=== PATIENT | male | born 1950 | race Caucasian/White ===

== ENCOUNTER 2017-04-08 14:57 | Inpatient (IN) | payer MEDICARE, OTHER ==
[~2017-04-08 14:57] MED LIST: ROCURONIUM BROMIDE INJ 50 MG/5 ML VIAL IV ONE; SUCCINYLCHOLINE CHLORIDE INJ 200 MG/10 ML VIAL ONE
--- NOTE | 2017-04-08 15:08 | ER Document Report ---
ED Allergic Reaction - General Mode of Arrival: Medic Information source: Patient, Emergency Med Personnel - HPI Patient complains to provider of: angioedema Associated symptoms: Other - See above <PAMEAL MCMAHON - Last Filed: 04/08/17 19:59> <JUAN CARLOS LANDA - Last Filed: 04/09/17 01:28> - General Chief Complaint: Allergic Reaction Stated Complaint: angioedema Time Seen by Provider: 04/08/17 15:08 Notes: Patient is a 66 year old male, with a past medical history including hypertension, who presents to the emergency department via EMS for angioedema of his tongue after a reaction to Lisinopril. Patient reports he has been taking Lisinopril for "a long time". Patient reports the swelling began around 1000 and that he originally went to [facility] where he received Epinephrine, Solumedrol, and Pepcid. The doctor at that facility reported the tongue started to look better before departure, EMS report no changes in swelling en route. Patient denies difficulty breathing at this time. Patient also complains of a blister on his right index finger. PCP: Dr. Durbin (PAEMLA MCMAHON) - Related Data Allergies/Adverse Reactions: No Known Allergies Allergy (Unverified 04/08/17 18:21) Home Medications: Current Home Medications Atorvastatin Calcium [Lipitor 80 mg Tablet] 80 mg PO DAILY 04/08/17 [History] Fexofenadine HCl [Cathleen] 180 mg PO DAILY 04/08/17 [History] Gabapentin [Neurontin 300 mg Capsule] 300 mg PO Q8 04/08/17 [History] Gemfibrozil [Lopid 600 mg Tablet] 600 mg PO BID 04/08/17 [History] Levothyroxine Sodium [Synthroid] 125 mcg PO DAILY 04/08/17 [History] Lisinopril [Prinivil 40 mg Tablet] 40 mg PO DAILY 04/08/17 [History] Past Medical History - General Information source: Patient - Social History Smoking Status: Never Smoker Frequency of alcohol use: Occasional Drug Abuse: None Family History: Reviewed & Not Pertinent - Past Medical History Cardiac Medical History: Reports: Hx Hypercholesterolemia, Hx Hypertension <PAMELA MCMAHON - Last Filed: 04/08/17 19:59> Review of Systems - Review of Systems Constitutional: No symptoms reported EENT: See HPI, Mouth swelling Cardiovascular: No symptoms reported Respiratory: denies: Other - Difficulty breathing Gastrointestinal: No symptoms reported Genitourinary: No symptoms reported Male Genitourinary: No symptoms reported Musculoskeletal: No symptoms reported Skin: See HPI, Other - blister Hematologic/Lymphatic: No symptoms reported Neurological/Psychological: No symptoms reported -: Yes All other systems reviewed and negative <PAMELA MCMAHON - Last Filed: 04/08/17 19:59> Physical Exam <PAMELA MCMAHON - Last Filed: 04/08/17 19:59> <JUAN CARLOS LANDA - Last Filed: 04/09/17 01:28> - Vital signs Vitals: Resp Pulse Ox 17 96 04/08/17 15:03 04/08/17 15:03 - Notes Notes: GENERAL: Alert, interacts well. No acute distress. HEAD: Normocephalic, atraumatic. EYES: Pupils equal, round, and reactive to light. Extraocular movements intact. ENT: Oral mucosa moist, able to hold secretions. Unliateral swelling of left side of tongue. Able to visualize part of uvula. Voice is muffled. No soft pallet swelling. NECK: Full range of motion. Supple. Trachea midline. LUNGS: Clear to auscultation bilaterally, no wheezes, rales, or rhonchi. No respiratory distress. HEART: Regular rate and rhythm. No murmurs, gallops, or rubs. ABDOMEN: Soft, non-tender. Non-distended. Bowel sounds present in all 4 quadrants. EXTREMITIES: Moves all 4 extremities spontaneously. No edema, radial and dorsalis pedis pulses 2/4 bilaterally. No cyanosis. NEUROLOGICAL: Alert and oriented x3. Normal speech. PSYCH: Normal affect, normal mood. SKIN: 2mm area of pus on dorsal aspect of 1st phalanx on right hand with surrounding 1.5cm area of erythema that is firm and warm, no extensor tendonitis. (PAMELA MCMAHON) Course - Laboratory Result Diagrams: 04/08/17 15:02 04/08/17 15:02 - Consults anaesthesia Time consulted: 15:29 - Discussed patient's condition, requested anaesthesia to come exam patient Dr. Gonzales Time consulted: 17:00 - Will admit to ICU Consulted provider: will see as inpatient <PAMELA MCMAHON - Last Filed: 04/08/17 19:59> - Laboratory Result Diagrams: 04/08/17 15:02 04/08/17 15:02 <JUAN CARLOS LANDA - Last Filed: 04/09/17 01:28> - Re-evaluation Re-evalutation: 04/09/17 00:59 On arrival patient was protecting his airway well, had unilateral left-sided swelling of the tongue and his voice is somewhat muffled, patient had already received Pepcid, Benadryl, Solu-Medrol and epinephrine and stated that he is starting to feel better. Patient was closely monitored, after approximately 30 minutes patient started to feel like he was may be having some difficulty swallowing though he states his tongue did not feeling more swollen. When I rechecked in the left side of his tongue was more swollen than previously and the right side of his tongue was beginning to swell. At this point I did call anesthesia and let them know that I wanted them to come to the emergency department to evaluate this patient for potential emergent intubation. They did contact the surgeon Dr. Mtz who also came to the emergency department. During this time the patient's swelling progressed further. FFP and TXA were ordered as well as another dose of epinephrine. Dr. Dk Beavers from anesthesiology came along with his BOX FABRICATOR, they initially attempted to intubate the patient using a glide scope as well as propofol and succinylcholine and an 8 -0 ET tube, the were both unable to visualize the cords and were unable to pass the tube. I then attempted using a different glidescope bleed and was unable to pass the tube after visualizing the cords as the tube was too large, I then attempted to pass a bougie through the cords so we could load the tube over it, I was unable to pass the bougie through the cords however than the BOX FABRICATOR used a nasal approach and passed the bougie through the cords. He was concerned by the amount of edema that he was Encountering past the cords so before I could load a 7-0 ET tube onto the bougie he removed the bougie from the cords. At this point the anesthesiologist called for a halt to all attempts to intubate this patient. Dr. Mtz was at the bedside and decision was made to proceed with emergent cricothyroidotomy. During my attempted intubation and for the cricothyrotomy patient was given more ketamine for sedation as well as additional propofol. Dr. Mtz successfully performed a cricothyrotomy and placed a 6.5 Shiley. Please see his note for further details. Patient did have some hypoxia after the procedure, he had some wheezing, patient was given an albuterol breathing treatment and ventilator settings were adjusted and the hypoxia resolved. Patient was then discussed with Dr. Méndez who agreed to admit the patient to his service in the intensive care unit. (JUAN CARLOS LANDA) - Vital Signs Vital signs: Temp Pulse Resp BP Pulse Ox 97.5 F 68 18 110/53 L 100 04/09/17 00:05 04/09/17 00:04 04/09/17 00:05 04/09/17 00:05 04/09/17 00:05 - Laboratory Laboratory results interpreted by me: 04/08/17 04/08/17 15:02 15:02 WBC 11.0 H Hgb 13.0 L Monocytes % 15.2 H Eosinophils % 7.2 H Absolute Monocytes 1.7 H Absolute Eosinophils 0.8 H Sodium 136.6 L BUN 21 H Creatinine 1.45 H Est GFR ( Amer) 59 L Est GFR (Non-Af Amer) 49 L Glucose 143 H Procedures - Intubation Orotracheal Airway evaluation: Large tongue, Poss. upper airway obst. Mallampati Classification: Class 4 Medications: Succinylcholine, Ketamine, Diprivan Intubation method: Orotracheal Blade type: Graciela Blade size: 4 Equipment used: Glidescope, Bougie, Other - Airway eventually secured through cricothyrotomy Dr. Mtz. Sutured in place. Chest x-ray confirms good position. Breath Sounds after Intubation: Equal End tidal CO2 confirmed: Yes Ventilator settings: SIMV Tidal volume: 450 FiO2: 30 Respirations: 16 Pressure support: 10 PEEP: 5 Post Intubation Xray: Yes Intubation Complications: Oral-unsuccessful attempt, O2 saturation decreased <JUAN CARLOS LANDA - Last Filed: 04/09/17 01:28> Critical Care Note - Critical Care Note Total time excluding time spent on procedures (mins): 35 <JUAN CARLOS LANDA - Last Filed: 04/09/17 01:28> Discharge <PAMELA MCMAHON - Last Filed: 04/08/17 19:59> - Discharge Admitting Provider: Hospitalist - busteed Unit Admitted: ICU <JUAN CARLOS LANDA - Last Filed: 04/09/17 01:28> - Discharge Clinical Impression: Angio-edema Qualifiers: Encounter type: initial encounter Qualified Code(s): T78.3XXA - Angioneurotic edema, initial encounter Condition: Critical Disposition: ADMITTED INPATIENT Scribe Attestation: 04/09/17 01:19 I personally performed the services described in the documentation, reviewed and edited the documentation which was dictated to the scribe in my presence, and it accurately records my words and actions. (JUAN CARLOS LANDA) Scribe Documentation - Scribe Written by Sidra:: sidra Gauthier, 04/08/17, 1538 acting as scribe for :: Esteban <PAMELA MCMAHON - Last Filed: 04/08/17 19:59>
[2017-04-08] MEDS ORDERED: NORMAL SALINE 250 ML IV PRN (15:30)
[2017-04-08] MEDS ORDERED: TRANEXAMIC ACID INJ/PF 1,000 MG/10 ML SDV IV ONE (15:31)
[2017-04-08] MEDS ORDERED: EPINEPHRINE INJ/PF 1 MG/1 ML AMPULE ONE (15:42)
[2017-04-08] MEDS ORDERED: PROPOFOL INJ 200 MG/20 ML VIAL IV ONE (15:59)
[2017-04-08] MEDS ORDERED: EPTIFIBATIDE 0 MG/0 ML INFUS..BTL IV ONE (16:04)
[2017-04-08] MEDS ORDERED: KETAMINE HCL INJ 500 MG/10 ML VIAL ONE (16:08)
[2017-04-08] MEDS ORDERED: LIDOCAINE 0.5% INJ-PF (5 MG/ML) 50 ML SDV ONE (16:12)
[2017-04-08] MEDS ORDERED: MIDAZOLAM HCL 100 ML IV ONE (16:26)
[2017-04-08] MEDS ORDERED: ALBUTEROL SULFATE 0.083% NEB 2.5 MG/3 ML AMPUL NEB ONE ×2 (16:30→17:03)
[2017-04-08] MEDS ORDERED: MIDAZOLAM 2 MG/2 ML INJ ONE (17:00)
[2017-04-08] MEDS ORDERED: MIDAZOLAM 2 MG/2 ML INJ IV ONE (17:01)
[2017-04-08] MEDS ORDERED: PROPOFOL 100 ML IV PRN ×2 (17:07→18:04)
[2017-04-08] MEDS ORDERED: PROPOFOL 100 ML IV ONE (17:09)
[2017-04-08 17:12] LABS: ABSOLUTE BASOPHILS # (AUTO) 0.1 10^3/uL (0.0-0.2); ABSOLUTE EOSINOPHILS # (AUTO) 0.8 10^3/uL (0.0-0.6); ABSOLUTE LYMPHOCYTES (AUTO) 2.5 10^3/uL (0.5-4.7); ABSOLUTE MONOCYTES (AUTO) 1.7 10^3/uL (0.1-1.4); ABSOLUTE NEUT (AUTO) 5.9 10^3/uL (1.7-8.2); BASOPHILS % (AUTO) 1.1 % (0-2); EOSINOPHILS % (AUTO) 7.2 % (0-6); HEMATOCRIT 38.9 % (37.9-51.0); HGB HCT DIFFERENCE 0.1; LYMPHOCYTES % (AUTO) 23.1 % (13-45); MEAN CORPUSCULAR HEMOGLOBIN 28.8 pg (27.0-33.4); MEAN CORPUSCULAR HGB CONC 33.4 g/dL (32.0-36.0); MEAN CORPUSCULAR VOLUME 86 fl (80-97); MONOCYTES % (AUTO) 15.2 % (3-13); RED BLOOD COUNT 4.51 10^6/uL (4.35-5.55); RED CELL DISTRIBUTION WIDTH 13.7 % (11.5-14.0); SEGMENTED NEUTROPHILS % (AUTO) 53.4 % (42-78)
--- NOTE | 2017-04-08 17:28 | RADIOLOGY REPORT (SQ) ---
EXAM DESCRIPTION: CHEST SINGLE VIEW COMPLETED DATE/TIME: 04/08/2017 5:11 pm REASON FOR STUDY: post-intubation/OG PLACEMENT COMPARISON: None. EXAM PARAMETERS: NUMBER OF VIEWS: One view. TECHNIQUE: Single frontal radiographic view of the chest acquired. RADIATION DOSE: NA LIMITATIONS: None. FINDINGS: LUNGS AND PLEURA: No opacities, masses or pneumothorax. No pleural effusion. MEDIASTINUM AND HILAR STRUCTURES: No masses. Contour normal. HEART AND VASCULAR STRUCTURES: Heart normal in size. Normal vasculature. BONES: No acute findings. HARDWARE: A tracheostomy tube is present. There appears to be an NG tube or OG tube extending just i nside the stomach. OTHER: No other significant finding. IMPRESSION: Tube placement as described. TECHNICAL DOCUMENTATION: JOB ID: [id number]
[2017-04-08 17:29] LABS: ALANINE AMINOTRANSFERASE 36 U/L (21-72); ALBUMIN 4.2 g/dL (3.5-5.0); ALKALINE PHOSPHATASE 90 U/L (38-126); ANION GAP 12 (5-19); ASPARTATE AMINO TRANSFERASE 29 U/L (17-59); BILIRUBIN,DIRECT 0.4 mg/dL (0.0-0.4); BILIRUBIN,TOTAL 0.6 mg/dL (0.2-1.3); BLOOD UREA NITROGEN 21 mg/dL (7-20); CALCIUM 9.2 mg/dL (8.4-10.2); CARBON DIOXIDE 23 mmol/L (22-30); CHLORIDE 102 mmol/L (98-107); CREATININE RESULT 1.45 mg/dL (0.52-1.25); GLUCOSE 143 mg/dL (75-110); POTASSIUM 4.5 mmol/L (3.6-5.0); SODIUM 136.6 mmol/L (137-145); TOTAL PROTEIN 7.6 g/dL (6.3-8.2)
[2017-04-08] MEDS ORDERED: ONDANSETRON 4 MG TAB.RAPDIS PO PRN (17:47)
[2017-04-08] MEDS ORDERED: LEVALBUTEROL HCL NEB 0.63 MG/3 ML AMPUL NEB PRN (17:47)
[2017-04-08] MEDS ORDERED: DEXTROSE 50%-WATER 25 GM/50 ML DISP.SYRIN IV PRN ×2 (17:47)
[2017-04-08] MEDS ORDERED: ACETAMINOPHEN 650 MG SUPP.RECT PR PRN (17:47)
[2017-04-08] MEDS ORDERED: GLUCAGON,HUMAN RECOMB 1 MG INJ SUBCUT PRN (17:47)
[2017-04-08] MEDS ORDERED: ONDANSETRON HCL INJ/PF 4 MG/2 ML SDV IV PRN (17:47)
[2017-04-08] MEDS ORDERED: DEXTROSE 40% GEL 15 GM TUBE PO PRN ×2 (17:47)
--- NOTE | 2017-04-08 18:04 | RADIOLOGY REPORT (SQ) ---
EXAM DESCRIPTION: CHEST SINGLE VIEW COMPLETED DATE/TIME: 04/08/2017 5:52 pm REASON FOR STUDY: INTUBATION COMPARISON: None. EXAM PARAMETERS: NUMBER OF VIEWS: One view. TECHNIQUE: Single frontal radiographic view of the chest acquired. RADIATION DOSE: NA LIMITATIONS: None. FINDINGS: LUNGS AND PLEURA: No opacities, masses or pneumothorax. No pleural effusion. MEDIASTINUM AND HILAR STRUCTURES: No masses. Contour normal. HEART AND VASCULAR STRUCTURES: Heart normal in size. Normal vasculature. BONES: No acute findings. HARDWARE: The tracheostomy tube is present. And NG tube extends just inside the stomach. OTHER: No other significant finding. IMPRESSION: Tube placement as described. TECHNICAL DOCUMENTATION: JOB ID: [id number]
--- NOTE | 2017-04-08 18:13 | PDOC H&P ---
History of Present Illness Admission Date/PCP: 04/08/17 17:43 ALLYSON LOVE MD Patient complains of: Angioedema History of Present Illness: ADAL CHOI is a 66 year old male with a history of hypertension for which she has been taking lisinopril 40 mg daily presented to the emergency room with angioedema. The patient approximately 1:00 this afternoon presented to his boss at work and said he needs to go to see the doctor. At that time his boss noted that he was having slurred speech and a swollen face is worse on the right. He then went to his primary care at [facility] and was given IV steroids, IV Benadryl, IV H2 abeba and the ambulance was called. Patient was transferred to the emergency room here at [facility] and he continued to have worsening swelling. Anesthesia was called for intubation and they were unable to intubate the patient. The patient then underwent emergent tracheostomy. Since that time the patient has been ventilating comfortably and has received continued steroids and antihistamines. Past Medical History Cardiac Medical History: Reports: Hyperlipidema, Hypertension Pulmonary Medical History: Reports: None EENT Medical History: Reports: None Neurological Medical History: Reports: None Endocrine Medical History: Reports: Hypothyroidism Malignancy Medical History: Reports: None GI Medical History: Reports: None Psychiatric Medical History: Reports: None Traumatic Medical History: Reports: None Hematology: Reports: None Infectious Medical History: Reports: None Past Surgical History Past Surgical History: Reports: None Social History Information Source: Relative Lives with: Spouse/Significant other Smoking Status: Never Smoker Frequency of Alcohol Use: None Hx Recreational Drug Use: No Drugs: None - Advance Directive Resuscitation Status: Full Code Family History Family History: Father at age 49 from a CVA. Mother in her 60s from chronic renal failure Parental Family History Reviewed: Yes Children Family History Reviewed: No Sibling(s) Family History Reviewed.: No Review of Systems ROS unobtainable: Due to endotracheal tube Physical Exam Vital Signs: Temp Pulse Resp BP Pulse Ox 18 147/80 H 97 04/08/17 15:26 04/08/17 15:26 04/08/17 15:26 General appearance: PRESENT: obese Head exam: PRESENT: atraumatic, normocephalic Eye exam: PRESENT: conjunctiva pink, PERRLA. ABSENT: scleral icterus Ear exam: PRESENT: normal external ear exam Mouth exam: PRESENT: moist, tongue midline Neck exam: PRESENT: tracheostomy - Fresh tracheostomy in place. ABSENT: carotid bruit, JVD, lymphadenopathy, thyromegaly Respiratory exam: PRESENT: clear to auscultation katelyn. ABSENT: rales, rhonchi, wheezes Cardiovascular exam: PRESENT: RRR. ABSENT: diastolic murmur, rubs, systolic murmur GI/Abdominal exam: PRESENT: normal bowel sounds, soft. ABSENT: distended, guarding, mass, organolmegaly, rebound, tenderness Extremities exam: ABSENT: calf tenderness, clubbing, pedal edema Neurological exam: PRESENT: other - Unable to assess as the patient is sedated Psychiatric exam: PRESENT: other - Unable to assess Skin exam: PRESENT: dry, intact, warm. ABSENT: cyanosis, rash Results Impressions: Chest X-Ray 04/08/17 17:01 IMPRESSION: Tube placement as described. Assessment & Plan - Diagnosis (1) Angio-edema Is this a current diagnosis for this admission?: YesPlan: The patient has angioedema most likely from the lisinopril he normally takes as an outpatient. He has been on this for years. Will give the Solu-Medrol, Benadryl, Pepcid. Patient will be monitored in the intensive care unit. Will consult general surgery to help manage the tracheostomy site. (2) Hypertension Is this a current diagnosis for this admission?: YesPlan: Will stop the lisinopril. (3) Hypothyroidism Is this a current diagnosis for this admission?: YesPlan: Patient normally is on Synthroid. (4) Hyperlipidemia Is this a current diagnosis for this admission?: YesPlan: Patient takes 2 different cholesterol medications however the is unable to remember the names at this time - Time Time Spent: 50 to 70 Minutes - Inpatient Certification Medical Necessity: Need Close Monitoring Due to Risk of Patient Decompensation - Plan Summary Plan Summary: Admitted to the intensive care unit for close monitoring.
[2017-04-08] MEDS: METHYLPREDNISOLONE INJ 40 MG/1 ML SDV IV SCH (21:22)
[2017-04-08] MEDS: DIPHENHYDRAMINE HCL 50 MG/ML VIAL IV SCH (21:22)
[2017-04-08] MEDS: FAMOTIDINE INJ/PF 20 MG/2 ML SDV IV SCH (21:23)
[2017-04-08] MEDS: NORMAL SALINE 1000 ML 1,000 ML IV PRN (22:31)
[2017-04-08] MEDS: PROPOFOL 100 ML IV PRN (23:56)
[2017-04-08] MEDS: MIDAZOLAM HCL 100 ML IV PRN (23:56)
[2017-04-09] MEDS: DIPHENHYDRAMINE HCL 50 MG/ML VIAL IV SCH ×2 (03:24→09:48)
[2017-04-09] MEDS: PROPOFOL 100 ML IV PRN ×4 (03:34→09:49)
[2017-04-09 04:42] LABS: ABSOLUTE LYMPHOCYTES (AUTO) 0.9 10^3/uL (0.5-4.7); ABSOLUTE MONOCYTES (AUTO) 0.9 10^3/uL (0.1-1.4); ABSOLUTE NEUT (AUTO) 12.3 10^3/uL (1.7-8.2); BASOPHILS % (AUTO) 0.3 % (0-2); EOSINOPHILS % (AUTO) 0.1 % (0-6); HEMATOCRIT 33.9 % (37.9-51.0); HGB HCT DIFFERENCE -0.9; LYMPHOCYTES % (AUTO) 6.5 % (13-45); MEAN CORPUSCULAR HEMOGLOBIN 27.9 pg (27.0-33.4); MEAN CORPUSCULAR HGB CONC 32.4 g/dL (32.0-36.0); MEAN CORPUSCULAR VOLUME 86 fl (80-97); MONOCYTES % (AUTO) 6.4 % (3-13); RED BLOOD COUNT 3.92 10^6/uL (4.35-5.55); RED CELL DISTRIBUTION WIDTH 13.6 % (11.5-14.0); SEGMENTED NEUTROPHILS % (AUTO) 86.7 % (42-78); WHITE BLOOD COUNT 14.2 10^3/uL (4.0-10.5)
[2017-04-09 04:55] LABS: ANION GAP 10 (5-19); BLOOD UREA NITROGEN 18 mg/dL (7-20); CALCIUM 8.3 mg/dL (8.4-10.2); CARBON DIOXIDE 22 mmol/L (22-30); CHLORIDE 106 mmol/L (98-107); CREATININE RESULT 0.98 mg/dL (0.52-1.25); GLUCOSE 153 mg/dL (75-110); POTASSIUM 4.6 mmol/L (3.6-5.0); TRIGLYCERIDES 135 mg/dL (<150)
[2017-04-09] MEDS: NORMAL SALINE 1000 ML 1,000 ML IV PRN (05:01)
[2017-04-09] MEDS: METHYLPREDNISOLONE INJ 40 MG/1 ML SDV IV SCH (05:01)
[2017-04-09 05:10] LABS: ARTERIAL BLOOD BASE EXCESS 0.5 mmol/L; ARTERIAL BLOOD O2 SATURATION 97.8 % (94-98)
[2017-04-09] MEDS: MIDAZOLAM HCL 100 ML IV PRN (06:56)
--- NOTE | 2017-04-09 07:14 | RADIOLOGY REPORT (SQ) ---
EXAM DESCRIPTION: CHEST SINGLE VIEW COMPLETED DATE/TIME: 04/09/2017 6:30 am REASON FOR STUDY: intubation COMPARISON: 04/08/2017. EXAM PARAMETERS: NUMBER OF VIEWS: One view. TECHNIQUE: Single frontal radiographic view of the chest acquired. RADIATION DOSE: NA LIMITATIONS: None. FINDINGS: LUNGS AND PLEURA: Moderate lung volumes. Mild interstitial markings of the lower lobes. MEDIASTINUM AND HILAR STRUCTURES: No masses. Contour normal. HEART AND VASCULAR STRUCTURES: Heart normal in size. Normal vasculature. BONES: No acute findings. HARDWARE: Adequate appearing NG tube. OTHER: No other significant finding. IMPRESSION: No significant interval change. NG tube. TECHNICAL DOCUMENTATION: JOB ID: [id number]
[2017-04-09] MEDS ORDERED: NORMAL SALINE 250 ML IV PRN ×2 (07:59)
--- NOTE | 2017-04-09 09:31 | PDOC TRANSFER SUMMARY ---
General Admission Date/PCP: 04/08/17 17:47 ALLYSON LOVE MD Transfer Date: 04/09/17 Accepting Facility: [facility] Accepting Physician: Dr. Arnaldo Powell Resuscitation Status: Full Code - Transfer Diagnosis (1) Angio-edema Is this a current diagnosis for this admission?: YesDiagnosis Summary: [place] to most likely be secondary to lisinopril (2) Hypertension Is this a current diagnosis for this admission?: Yes (3) Hypothyroidism Is this a current diagnosis for this admission?: Yes (4) Hyperlipidemia Is this a current diagnosis for this admission?: Yes - Transfer Medications Home Medications: Atorvastatin Calcium [Lipitor 80 mg Tablet] 80 mg PO DAILY 04/08/17 Fexofenadine HCl [Cathleen] 180 mg PO DAILY 04/08/17 Gabapentin [Neurontin 300 mg Capsule] 300 mg PO Q8 04/08/17 Gemfibrozil [Lopid 600 mg Tablet] 600 mg PO BID 04/08/17 Levothyroxine Sodium [Synthroid] 125 mcg PO DAILY 04/08/17 Lisinopril [Prinivil 40 mg Tablet] 40 mg PO DAILY 04/08/17 Transfer Medications: Current Medications Acetaminophen (Tylenol 650 Mg Supp) [address] Q4HP PRN PRN Reason: FOR PAIN OR TEMP Stop: 05/08/17 17:46 Dextrose (Dextrose Inj 50% Syringe (25 Gm/50 Ml)) 12.5 gm IV PRN PRN; Protocol PRN Reason: FOR BG 50-69 IN ALERT PATIENT Stop: 05/08/17 17:46 Dextrose (Dextrose Inj 50% Syringe (25 Gm/50 Ml)) 25 gm IV PRN PRN; Protocol PRN Reason: See Label Comments Stop: 05/08/17 17:46 Diphenhydramine HCl (Benadryl Inj 50 Mg/1 Ml Vial) 50 mg IV Q6A KLAUS Stop: 05/08/17 20:59 Last Admin: 04/09/17 03:24 Dose: 50 mg Famotidine (Pepcid Inj/Pf 20 Mg/2 Ml Sdv) 20 mg IV Q12 KLAUS Stop: 05/08/17 21:59 Last Admin: 04/08/17 21:23 Dose: 20 mg Glucagon (Glucagen Inj 1 Mg Vial) 1 mg SUBCUT PRN PRN; Protocol PRN Reason: Evaluate for BG < 70 Stop: 05/08/17 17:46 Glucose (Glutose 40% Gel 15 Gm Tube) 15 gm PO PRN PRN; Protocol PRN Reason: For BG 50-69 in Alert Patient Stop: 05/08/17 17:46 Glucose (Glutose 40% Gel 15 Gm Tube) 30 gm PO PRN PRN; Protocol PRN Reason: FOR BG < 50 IN ALERT PATIENT Stop: 05/08/17 17:46 Sodium Chloride (Nacl 0.9% 250 Ml Iv Soln) 250 mls @ 0 mls/hr IV CONTINUOUS PRN ; As Directed PRN Reason: AFTER EACH UNIT Stop: 04/09/17 15:29 Sodium Chloride (Nacl 0.9% 1000 Ml Iv Soln) 1,000 mls @ 125 mls/hr IV CONTINUOUS PRN PRN Reason: THIS MED IS NOT "PRN" Stop: 05/08/17 17:46 Last Admin: 04/09/17 05:01 Dose: 1,000 ml Propofol (Diprivan Rtu 1000 Mg/100 Ml Inf.Bottle) 100 mls @ 0 mls/hr IV CONTINUOUS PRN; Protocol; Titrate PRN Reason: THIS MED IS NOT "PRN" Stop: 05/08/17 23:10 Last Admin: 04/09/17 06:55 Dose: 100 ml Sodium Chloride (Nacl 0.9% 250 Ml Iv Soln) 250 mls @ 30 mls/hr IV .DURING TRANSFUSION PRN PRN Reason: THIS MED IS NOT "PRN" Stop: 04/10/17 07:58 Sodium Chloride (Nacl 0.9% 250 Ml Iv Soln) 250 mls @ 0 mls/hr IV CONTINUOUS PRN ; As Directed PRN Reason: AFTER EACH UNIT Stop: 04/10/17 07:58 Levalbuterol HCl (Xopenex Neb 0.63 Mg/3 Ml Ampul) 0.63 mg NEB RTQ4HP PRN PRN Reason: SHORTNESS OF BREATH Stop: 05/08/17 17:46 Methylprednisolone Sodium Succinate (Solu-Medrol Inj/Pf 40 Mg/1 Ml Sdv) 40 mg IV Q8 KLAUS Stop: 05/08/17 21:59 Last Admin: 04/09/17 05:01 Dose: 40 mg Ondansetron HCl (Zofran Inj/Pf 4 Mg/2 Ml Sdv) 4 mg IV Q4HP PRN PRN Reason: FOR NAUSEA/VOMITING Stop: 05/08/17 17:46 Ondansetron HCl (Zofran Odt 4 Mg Tablet) 4 mg PO Q4HP PRN PRN Reason: FOR NAUSEA/VOMITING Stop: 05/08/17 17:46 Sodium Chloride (Saline Flush 2.5 Ml Monoject Prefil Syrin) 2.5 ml IV Q8 KLAUS Stop: 05/08/17 21:59 Last Admin: 04/09/17 05:01 Dose: Not Given - Allergies Allergies/Adverse Reactions: No Known Allergies Allergy (Unverified 04/08/17 18:21) - Diet/Activity Discharge Diet: Other (Comments) - N.p.o. Discharge Activity: Bedrest Hospital Course Hospital Course: 66-year-old gentleman who has been on lisinopril for many years who was in good health until yesterday afternoon. He went to his boss to complain that he was having some problems with facial swelling and he was noted to have some slurred speech. He went to his primary care doctor which was at [facility]. He was given steroids, Benadryl and the EMS was called. Patient was found to have upper airway swelling secondary to angioedema. He was transferred to [facility] emergency room. At that time he continued to have worsening of his airway obstruction. He had already been given steroids, Benadryl. Anesthesia was called and they attempted to do intubation. They were unable to intubate his airway and Dr. Mtz of general surgery performed an emergency tracheostomy. The patient received fresh frozen plasma in the emergency room. The patient was admitted and was continued on IV steroids, Benadryl, Pepcid. Overnight the patient continues to have significant amount of soft tissue swelling. His tongue is protruding from his mouth. He is being given 2 additional units of FFP. ENT consultation is not available at our facility at this time. Because of this I discussed the case with Dr. Arnaldo Powell at [facility] intensive care unit who graciously agrees to accept the patient in transfer. The patient did not have any hypotension or hypoxia during his emergency room stay. According to anesthesia there was concern that there may have been a mass in the hypopharynx area however given the angioedema is unclear whether it was just related angioedema or there is some other process going on. In the electronic medical records it is documented that the patient received Integrilin. This is incorrect and the patient did not receive Integrilin. Physical Exam Vital Signs: Temp Pulse Resp BP Pulse Ox 96.6 F L 65 18 111/63 99 04/09/17 06:06 04/09/17 07:33 04/09/17 06:06 04/09/17 06:06 04/09/17 06:06 Intake & Output 04/08/17 04/09/17 04/10/17 06:59 06:59 06:59 Intake Total 1479 Output Total 1950 60 Balance -471 -60 Weight 98.8 kg General appearance: PRESENT: no acute distress Head exam: PRESENT: atraumatic, normocephalic Eye exam: PRESENT: conjunctiva pink, EOMI, PERRLA. ABSENT: scleral icterus Ear exam: PRESENT: normal external ear exam Mouth exam: PRESENT: other - Has soft tissue swelling with his tongue protruding from his mouth. Neck exam: PRESENT: tracheostomy. ABSENT: JVD, tracheal deviation Respiratory exam: PRESENT: clear to auscultation katelyn. ABSENT: rales, rhonchi, wheezes Cardiovascular exam: PRESENT: RRR. ABSENT: diastolic murmur, rubs, systolic murmur GI/Abdominal exam: PRESENT: normal bowel sounds, soft. ABSENT: distended, guarding, mass, organolmegaly, rebound, tenderness Extremities exam: ABSENT: calf tenderness, clubbing, pedal edema Neurological exam: PRESENT: other - Sedated Psychiatric exam: PRESENT: other - Unable to assess Skin exam: PRESENT: dry, intact, warm. ABSENT: cyanosis, rash Results Laboratory Results: 04/09/17 04:29 04/09/17 04:29 04/09/17 04/09/17 04/09/17 04:29 04:29 04:50 WBC 14.2 H RBC 3.92 L Hgb 11.0 L Hct 33.9 L MCV 86 MCH 27.9 MCHC 32.4 RDW 13.6 Plt Count 288 Seg Neutrophils % 86.7 H Lymphocytes % 6.5 L Monocytes % 6.4 Eosinophils % 0.1 Basophils % 0.3 Absolute Neutrophils 12.3 H Absolute Lymphocytes 0.9 Absolute Monocytes 0.9 Absolute Eosinophils 0.0 Absolute Basophils 0.0 Carbonic Acid 1.28 HCO3/H2CO3 Ratio 19:1 ABG pH 7.40 ABG pCO2 42.6 ABG pO2 106.5 H ABG HCO3 25.5 ABG O2 Saturation 97.8 ABG Base Excess 0.5 FiO2 40% Sodium 138.0 Potassium 4.6 Chloride 106 Carbon Dioxide 22 Anion Gap 10 BUN 18 Creatinine 0.98 Est GFR ( Amer) > 60 Est GFR (Non-Af Amer) > 60 Glucose 153 H Calcium 8.3 L Triglycerides 135 Impressions: Chest X-Ray 04/09/17 06:00 IMPRESSION: No significant interval change. NG tube. Plan Discharge Plan: Patient is to be transferred to [facility]. Dr. Arnaldo Powell is the accepting physician. He is being transferred for further ENT evaluation which is not available at our facility at this time. Time Spent: Greater than 30 Minutes
[2017-04-09] MEDS: FAMOTIDINE INJ/PF 20 MG/2 ML SDV IV SCH (09:48)
[2017-04-09 10:10] VITALS: BP 113/61
== END 2017-04-09 10:05 | disposition short-term general hospital (02) | DRG 4 ==
LOC: ER 14:57 → UNDOADMIN 17:43 → EH 17:43 → ICU 20:04
PROVIDERS: ADMIT Family Medicine; ATTEND Family Medicine
PROC: 0B110F4 Bypass Trachea to Cutaneous with Tracheostomy Device, Open Approach (ICD-10-PCS; principal; 2017-04-08)
PROC: 5A1935Z Respiratory Ventilation, Less than 24 Consecutive Hours (ICD-10-PCS; 2017-04-08)
PROC: 30233K1 Transfusion of Nonautologous Frozen Plasma into Peripheral Vein, Percutaneous Approach (ICD-10-PCS; 2017-04-08)
PROC: 0H9FXZZ Drainage of Right Hand Skin, External Approach (ICD-10-PCS; 2017-04-08)
DX: T78.3XXA Angioneurotic edema, initial encounter (principal); S60.420A Blister (nonthermal) of right index finger, initial encounter; I10 Essential (primary) hypertension; E78.5 Hyperlipidemia, unspecified; E03.9 Hypothyroidism, unspecified; Z79.899 Other long term (current) drug therapy
CPT/HCPCS: 36415; 36430; 51702; 71010; 80048; 80053; 82803; 84478; 85025; 86900; 86901; 87070; 87075; 87077; 87186; 87205; 94003; 94640; 99291; J0330; J1200; J2250; J2704; J2920; J3490; J7030; P9017; S0028

== ENCOUNTER 2018-07-11 13:25 | Emergency (ER) | payer MEDICARE, OTHER ==
[2018-07-11] MEDS ORDERED: FAMOTIDINE INJ/PF 20 MG/2 ML SDV IV ONE (14:20)
[2018-07-11] MEDS ORDERED: METHYLPREDNISOLONE INJ 125 MG/2 ML SDV IV ONE (14:20)
--- NOTE | 2018-07-11 14:22 | ER Document Report ---
ED Medical Screen (RME) - General Chief Complaint: Allergic Reaction Stated Complaint: FACIAL SWELLING Time Seen by Provider: 07/11/18 14:17 Mode of Arrival: Ambulatory Information source: Patient Notes: Patient is a 67-year-old male who presents with chief complaint of facial swelling. Patient reports no new medications foods or anything else ingested. Patient reports that this morning he started having a feeling that his face was swelling as well as throat swelling. Patient denies any difficulty breathing. Patient does report that he has an allergy to lisinopril, he apparently required an emergent tracheotomy 1 year ago in relation to his lisinopril allergy. Patient has not taken that medication since then. Exam: Face flushed with mild swelling. No airway swelling noted on visual exam. Patient able to swallow without difficulty. Lung sounds are clear to auscultation bilaterally. I have greeted and performed a rapid initial assessment of this patient. A comprehensive ED assessment and evaluation of the patient, analysis of test results and completion of the medical decision making process will be conducted by additional ED providers. Dictation of this chart was performed using voice recognition software; therefore, there may be some unintended grammatical errors. TRAVEL OUTSIDE OF THE [place] IN LAST 30 DAYS: No - Related Data Allergies/Adverse Reactions: lisinopril Allergy (Verified 07/11/18 13:28) Past Medical History - Social History Chew tobacco use (# tins/day): No Frequency of alcohol use: Social Drug Abuse: None - Past Medical History Cardiac Medical History: Reports: Hx Hypercholesterolemia, Hx Hypertension Endocrine Medical History: Reports: Hx Hypothyroidism Renal/ Medical History: Denies: Hx Peritoneal Dialysis Past Surgical History: Reports: Hx Orthopedic Surgery, Hx Tonsillectomy Physical Exam - Vital signs Vitals: Temp Pulse Resp BP Pulse Ox 98.1 F 73 16 146/76 H 97 07/11/18 13:40 07/11/18 13:40 07/11/18 13:40 07/11/18 13:40 07/11/18 13:40 Course - Vital Signs Vital signs: Temp Pulse Resp BP Pulse Ox 98.1 F 73 16 146/76 H 97 07/11/18 13:40 07/11/18 13:40 07/11/18 13:40 07/11/18 13:40 07/11/18 13:40 Doctor's Discharge - Discharge Referrals: ALLYSON LOVE MD [Primary Care Provider] - Follow up as needed
[2018-07-11] MEDS ORDERED: DIPHENHYDRAMINE HCL 50 MG/ML VIAL IV ONE (15:39)
[2018-07-11] MEDS ORDERED: MAGNESIUM SULFATE/D5W 1 GM/100 ML RTUPB IV ONE (15:39)
--- NOTE | 2018-07-11 15:43 | ER Document Report ---
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 Patient states he awoke with symptoms. He is concerned is getting an allergic reaction again which she has had in the past. He denies any difficulty swallowing or shortness of breath. TRAVEL OUTSIDE OF THE [place] IN LAST 30 DAYS: No - HPI Onset: Just prior to arrival Onset/Duration: Gradual Quality of pain: No pain Severity: None Pain Level: Denies Associated symptoms: denies: Chills, Fever, Shortness of breath Exacerbated by: Denies Relieved by: Denies Similar symptoms previously: Yes Recently seen / treated by doctor: Yes - Related Data Allergies/Adverse Reactions: lisinopril Allergy (Verified 07/11/18 13:28) Past Medical History - General Information source: Patient - Social History Smoking Status: Former Smoker Cigarette use (# per day): No Chew tobacco use (# tins/day): No Frequency of alcohol use: Social Drug Abuse: None Lives with: Family Family History: Reviewed & Not Pertinent Patient has suicidal ideation: No Patient has homicidal ideation: No - Past Medical History Cardiac Medical History: Reports: Hx Hypercholesterolemia, Hx Hypertension Pulmonary Medical History: Reports: None EENT Medical History: Reports: None Neurological Medical History: Reports: None Endocrine Medical History: Reports: Hx Hypothyroidism Renal/ Medical History: Reports: None. Denies: Hx Peritoneal Dialysis Malignancy Medical History: Reports None GI Medical History: Reports: None Musculoskeletal Medical History: Reports None Skin Medical History: Reports None Psychiatric Medical History: Reports: None Infectious Medical History: Reports: None Past Surgical History: Reports: Hx Orthopedic Surgery, Hx Tonsillectomy - Immunizations Hx Pneumococcal Vaccination: 07/19/16 Review of Systems - Review of Systems Constitutional: See HPI. denies: Chills, Fever EENT: See HPI Cardiovascular: No symptoms reported Respiratory: No symptoms reported Gastrointestinal: No symptoms reported Genitourinary: No symptoms reported Male Genitourinary: No symptoms reported Musculoskeletal: No symptoms reported Skin: No symptoms reported Hematologic/Lymphatic: No symptoms reported Neurological/Psychological: No symptoms reported Physical Exam - Vital signs Vitals: Temp Pulse Resp BP Pulse Ox 98.1 F 73 16 146/76 H 97 07/11/18 13:40 07/11/18 13:40 07/11/18 13:40 07/11/18 13:40 07/11/18 13:40 Notes: Physical exam: GENERAL: 67-year-old man, alert and oriented 3, no acute distress. HEAD: Atraumatic, normocephalic. EYES: I do not see any significant swelling of the face. Pupils equal round and reactive to light, extraocular movements intact, sclera anicteric, conjunctiva are normal. ENT: Nares patent, oropharynx clear without exudates. There is no swelling of the uvula or deviation of the uvula. There is no swelling at the floor of mouth underneath the tongue. Moist mucous membranes. NECK: Normal range of motion, supple without obvious mass or JVD. No stridor. LUNGS: Breath sounds clear to auscultation bilaterally and equal. No wheezes rales or rhonchi. HEART: Regular rate and rhythm without murmurs, rubs or gallops. ABDOMEN: Soft, normoactive bowel sounds. No tenderness to palpation. No guarding, no rebound. No masses appreciated. EXTREMITIES: Normal range of motion, no pitting or edema. No clubbing or cyanosis. NEUROLOGICAL: Cranial nerves II through XII grossly intact. Normal speech, moving all extremities. PSYCH: Normal mood, normal affect. SKIN: Objectively, I do not see any significant swelling around the face or around the mouth or in the mouth. Course - Re-evaluation Re-evalutation: 07/11/18 15:42 Given the history of this patient, we are treating for an acute allergic reaction (inciting event unknown) with IV steroids, IV histamine blockers, IV magnesium. Patient does not have any acute airway compromise and he has stable vital signs. Therefore, we will hold off on epi. - Vital Signs Vital signs: Temp Pulse Resp BP Pulse Ox 98.3 F 81 16 153/72 H 97 07/11/18 18:56 07/11/18 18:56 07/11/18 18:56 07/11/18 18:56 07/11/18 18:56 - Laboratory Result Diagrams: 07/11/18 14:07 Discharge - Discharge Clinical Impression: Allergic reaction Condition: Stable Disposition: HOME, SELF-CARE Additional Instructions: As we discussed, complement testing was sent but it is not likely to be back for another week or 2. You could call the hospital for the results ([phone]) Aloe up with your glove parts cutter: Follow-up with your primary care doctor as the steroids can make the sugar a little less controllable. Return to the emergency room for any shortness of breath, worsening swelling or any concerns or getting worse. Prescriptions: Diphenhydramine HCl [Benadryl 25 mg Capsule] 25 mg PO Q6 #14 capsule Famotidine [Pepcid 20 mg Tablet] 20 mg PO DAILY #12 tablet Prednisone [Deltasone 20 mg Tablet] 3 tab PO DAILY 5 Days tablet Referrals: ALLYSON LOVE MD [Primary Care Provider] - Follow up in 3-5 days
[2018-07-11 18:14] LABS: ALANINE AMINOTRANSFERASE 31 U/L (21-72); ALBUMIN 4.2 g/dL (3.5-5.0); ALKALINE PHOSPHATASE 71 U/L (38-126); ANION GAP 11 (5-19); ASPARTATE AMINO TRANSFERASE 29 U/L (17-59); BILIRUBIN,DIRECT 0.3 mg/dL (0.0-0.4); BILIRUBIN,TOTAL 0.6 mg/dL (0.2-1.3); BLOOD UREA NITROGEN 11 mg/dL (7-20); CALCIUM 9.3 mg/dL (8.4-10.2); CARBON DIOXIDE 26 mmol/L (22-30); CHLORIDE 102 mmol/L (98-107); GLUCOSE 92 mg/dL (75-110); POTASSIUM 4.2 mmol/L (3.6-5.0); SODIUM 138.5 mmol/L (137-145); TOTAL PROTEIN 7.5 g/dL (6.3-8.2)
[2018-07-11 18:57] VITALS: BP 153/72
== END 2018-07-11 18:59 | disposition home or self-care (01) ==
LOC: ER 13:25
DX: T78.40XA Allergy, unspecified, initial encounter (principal); R20.2 Paresthesia of skin; X58.XXXA Exposure to other specified factors, initial encounter; E11.9 Type 2 diabetes mellitus without complications; I10 Essential (primary) hypertension; Z88.8 Allergy status to other drugs, medicaments and biological substances; Z87.891 Personal history of nicotine dependence
CPT/HCPCS: 99283; 96375; 96365; 36415; 86160 ×2; 80053; 86161; J1200; J2930; J3475; S0028